=== PATIENT | male | born 1965 | race Caucasian/White ===

== ENCOUNTER 2019-06-28 23:19 | Inpatient (IN) | payer OTHER ==
[2019-06-28 23:56] LABS: ADD MAN DIFF? NO
[2019-06-28 23:59] LABS: BASOPHIL # 0.1 10^3/ul (0.0-0.1); BASOPHILS % 0.5 % (0.0-2.0); EOSINOPHILS # 0.1 10^3/ul (0.0-0.5); EOSINOPHILS % 0.9 % (0.0-7.0); HEMATOCRIT 41.2 % (42.0-52.0); HEMOGLOBIN 12.5 g/dl (14.0-18.0); LYMPHOCYTES # 1.8 10^3/ul (0.8-2.9); LYMPHOCYTES % 14.4 % (15.0-51.0); MEAN CORPUSCULAR HEMOGLOBIN 22.7 pg (29.0-33.0); MEAN CORPUSCULAR HGB CONC 30.3 g/dl (32.0-37.0); MEAN CORPUSCULAR VOLUME 74.8 fl (82.0-101.0); MEAN PLATELET VOLUME 9.4 fl (7.4-10.4); MONOCYTE # 0.9 10^3/ul (0.3-0.9); MONOCYTES % 6.7 % (0.0-11.0); NEUTROPHIL # 9.7 10^3/ul (1.6-7.5); PLATELET COUNT 446 10^3/UL (140-415); RED BLOOD COUNT 5.51 10^6/ul (4.70-6.10); RED CELL DISTRIBUTION WIDTH 17.3 % (11.5-14.5)
[2019-06-28 23:59] LABS: WHITE BLOOD COUNT 12.6 10^3/ul (4.8-10.8)
[2019-06-29 00:08] LABS: HEMOGLOBIN A1C 8.3 % (0-5.9)
[2019-06-29] MEDS: IOHEXOL 100 ML (00:12)
[2019-06-29] MEDS: SOD CHLORIDE 0.9% 100 ML (00:12)
[2019-06-29 00:18] LABS: INR 1.08; PROTIME 14.1 Sec (11.9-14.9); PT RATIO 1.1
[2019-06-29 00:19] LABS: ANION GAP 7 (5-13); BLOOD UREA NITROGEN 13 mg/dl (7-20); CALCIUM 8.7 mg/dl (8.4-10.2); CARBON DIOXIDE 30 mmol/L (21-31); CHLORIDE 101 mmol/L (97-110); CHOL/HDL RATIO 5.4 RATIO; CHOLESTEROL 173 mg/dl (100-200); CREATINE KINASE 286 IU/L (23-200); CREATININE 0.83 mg/dl (0.61-1.24); Estimated GFR > 60 mL/min (>60); GLUCOSE 153 mg/dl (70-220); HDL CHOLESTEROL 32 mg/dl (28-71); LDL CHOLESTEROL,CALCULATED 112 mg/dl; PARTIAL THROMBOPLASTIN TIME 31.9 Sec (23.0-35.0); SODIUM 138 mmol/L (135-144); TRIGLYCERIDES 145 mg/dl (0-149)
[2019-06-29] MEDS: niCARdipine-NS 0.1MG/ML DRIP 200 ML IV ×2 (00:22→02:37)
[2019-06-29 00:30] LABS: CK INDEX 0.9; CK-MB 2.53 ng/ml (0.0-2.4); TROPONIN-I 0.038 ng/ml (0.000-0.120)
[2019-06-29 00:44] LABS: ETHANOL < 10.0 mg/dl (0-0)
[2019-06-29] MEDS: POTASSIUM CHLORIDE 100 ML IVPB ×5 (01:10→14:35)
[2019-06-29] MEDS ORDERED: ONDANSETRON 4 MG INJ IV (02:00)
[2019-06-29] MEDS: DEXTROSE 5%-0.45% NACL 1,000 ML IV ×3 (02:46→16:11)
[2019-06-29] MEDS: niCARdipine 25 MG in SOD CHLORIDE 0.9% 240 ML IV ×3 (02:46→08:31)
[2019-06-29] MEDS: PANTOPRAZOLE 40 MG INJ IV (05:18)
[2019-06-29 06:40] LABS: ADD MAN DIFF? NO
[2019-06-29 06:53] LABS: BASOPHIL # 0.1 10^3/ul (0.0-0.1); BASOPHILS % 0.5 % (0.0-2.0); EOSINOPHILS # 0.2 10^3/ul (0.0-0.5); EOSINOPHILS % 1.3 % (0.0-7.0); HEMATOCRIT 40.5 % (42.0-52.0); HEMOGLOBIN 12.4 g/dl (14.0-18.0); LYMPHOCYTES # 1.9 10^3/ul (0.8-2.9); LYMPHOCYTES % 14.8 % (15.0-51.0); MEAN CORPUSCULAR HEMOGLOBIN 22.7 pg (29.0-33.0); MEAN CORPUSCULAR HGB CONC 30.6 g/dl (32.0-37.0); MEAN PLATELET VOLUME 9.8 fl (7.4-10.4); MONOCYTE # 0.9 10^3/ul (0.3-0.9); MONOCYTES % 6.5 % (0.0-11.0); NEUTROPHIL # 9.9 10^3/ul (1.6-7.5); NEUTROPHILS % 76.4 % (39.0-77.0); PLATELET COUNT 444 10^3/UL (140-415); RED BLOOD COUNT 5.47 10^6/ul (4.70-6.10); RED CELL DISTRIBUTION WIDTH 17.8 % (11.5-14.5)
[2019-06-29 07:27] LABS: ALANINE AMINOTRANSFERASE 37 IU/L (13-69); ALBUMIN 3.7 g/dl (3.3-4.9); ALKALINE PHOSPHATASE 134 IU/L (42-121); ANION GAP 10 (5-13); ASPARTATE AMINO TRANSFERASE 32 IU/L (15-46); BILIRUBIN,INDIRECT 0.6 mg/dl (0-1.1); BILIRUBIN,TOTAL 0.6 mg/dl (0.2-1.3); BLOOD UREA NITROGEN 10 mg/dl (7-20); CALCIUM 8.6 mg/dl (8.4-10.2); CARBON DIOXIDE 27 mmol/L (21-31); CHLORIDE 103 mmol/L (97-110); Estimated GFR > 60 mL/min (>60); GLUCOSE 177 mg/dl (70-220); POTASSIUM 3.1 mmol/L (3.5-5.1); SODIUM 140 mmol/L (135-144); TOTAL PROTEIN 7.8 g/dl (6.1-8.1)
[2019-06-29 09:25] LABS: IRON 26 ug/dl (35-150)
[2019-06-29 09:34] LABS: % IRON SATURATION 9 % SAT (22-52); TOTAL IRON BINDING CAPACITY 287 ug/dl (241-421)
[2019-06-29 10:43] LABS: ADD UMIC YES; UR ASCORBIC ACID NEGATIVE (NEGATIVE); UR BILIRUBIN (Dip) NEGATIVE (NEGATIVE); UR BLOOD (Dip) NEGATIVE (NEGATIVE); UR CLARITY CLEAR (CLEAR); UR COLOR YELLOW (YELLOW); UR GLUCOSE (Dip) NEGATIVE (NEGATIVE); UR KETONES (Dip) NEGATIVE (NEGATIVE); UR LEUKOCYTE ESTERASE (Dip) NEGATIVE Leu/ul (NEGATIVE); UR NITRITE (Dip) NEGATIVE (NEGATIVE); UR RBC 0 /HPF (0-5); UR SPECIFIC GRAVITY (Dip) 1.032 (1.003-1.030); UR TOTAL PROTEIN (Dip) 3+ mg/dl (NEGATIVE); UR UROBILINOGEN (Dip) NEGATIVE (NEGATIVE); UR WBC 1 /HPF (0-5)
[2019-06-29] MEDS: niCARdipine 50 MG in SOD CHLORIDE 0.9% 480 ML IV ×3 (11:13→21:27)
[2019-06-29 11:16] LABS: BARBITURATES Negative (NEGATIVE); BENZODIAZEPINES Negative (NEGATIVE); CANNABINOIDS Negative (NEGATIVE); COCAINE Negative (NEGATIVE); OPIATES Negative (NEGATIVE)
[2019-06-29 11:30] LABS: AMPHETAMINE/METHAMPHETAMINE positive (NEGATIVE)
[2019-06-30] MEDS: niCARdipine 50 MG in SOD CHLORIDE 0.9% 480 ML IV ×6 (01:33→23:06)
[2019-06-30] MEDS: DEXTROSE 5%-0.45% NACL 1,000 ML IV ×2 (04:47→17:08)
[2019-06-30 05:18] LABS: ADD MAN DIFF? NO
[2019-06-30 05:31] LABS: WHITE BLOOD COUNT 11.7 10^3/ul (4.8-10.8)
[2019-06-30 05:31] LABS: BASOPHIL # 0.1 10^3/ul (0.0-0.1); BASOPHILS % 0.5 % (0.0-2.0); EOSINOPHILS # 0.2 10^3/ul (0.0-0.5); EOSINOPHILS % 1.7 % (0.0-7.0); HEMOGLOBIN 11.4 g/dl (14.0-18.0); LYMPHOCYTES # 1.6 10^3/ul (0.8-2.9); LYMPHOCYTES % 13.4 % (15.0-51.0); MEAN CORPUSCULAR HEMOGLOBIN 22.8 pg (29.0-33.0); MEAN CORPUSCULAR HGB CONC 30.8 g/dl (32.0-37.0); MONOCYTES % 8.1 % (0.0-11.0); NEUTROPHIL # 8.8 10^3/ul (1.6-7.5); NEUTROPHILS % 75.9 % (39.0-77.0); PLATELET COUNT 412 10^3/UL (140-415); RED CELL DISTRIBUTION WIDTH 17.6 % (11.5-14.5)
[2019-06-30] MEDS: PANTOPRAZOLE 40 MG INJ IV (05:35)
[2019-06-30 05:59] LABS: ANION GAP 4 (5-13); BLOOD UREA NITROGEN 8 mg/dl (7-20); CARBON DIOXIDE 27 mmol/L (21-31); CHLORIDE 107 mmol/L (97-110); CREATININE 0.61 mg/dl (0.61-1.24); Estimated GFR > 60 mL/min (>60); GLUCOSE 176 mg/dl (70-220); MAGNESIUM 2.1 mg/dl (1.7-2.5); PHOSPHORUS 3.3 mg/dl (2.5-4.9); SODIUM 138 mmol/L (135-144)
[2019-06-30 07:12] LABS: POTASSIUM 3.2 mmol/L (3.5-5.1)
[2019-06-30] MEDS: POTASSIUM CHLORIDE 100 ML IVPB ×2 (09:26→11:06)
[2019-06-30] MEDS: morphine 2 MG INJ IV ×2 (15:52→21:03)
[2019-07-01] MEDS: niCARdipine 50 MG in SOD CHLORIDE 0.9% 480 ML IV ×5 (02:16→19:35)
[2019-07-01] MEDS: morphine 2 MG INJ IV ×2 (03:19→07:49)
[2019-07-01] MEDS: PANTOPRAZOLE 40 MG INJ IV (05:42)
[2019-07-01] MEDS: DEXTROSE 5%-0.45% NACL 1,000 ML IV (05:45)
[2019-07-01 05:49] LABS: ADD MAN DIFF? NO
[2019-07-01 05:55] LABS: BASOPHIL # 0.1 10^3/ul (0.0-0.1); BASOPHILS % 0.5 % (0.0-2.0); EOSINOPHILS # 0.1 10^3/ul (0.0-0.5); EOSINOPHILS % 0.3 % (0.0-7.0); HEMATOCRIT 36.8 % (42.0-52.0); HEMOGLOBIN 11.4 g/dl (14.0-18.0); LYMPHOCYTES # 1.3 10^3/ul (0.8-2.9); LYMPHOCYTES % 8.3 % (15.0-51.0); MEAN CORPUSCULAR VOLUME 74.2 fl (82.0-101.0); MEAN PLATELET VOLUME 10.2 fl (7.4-10.4); MONOCYTE # 1.1 10^3/ul (0.3-0.9); MONOCYTES % 7.5 % (0.0-11.0); NEUTROPHIL # 12.4 10^3/ul (1.6-7.5); NEUTROPHILS % 82.7 % (39.0-77.0); PLATELET COUNT 445 10^3/UL (140-415); RED BLOOD COUNT 4.96 10^6/ul (4.70-6.10); RED CELL DISTRIBUTION WIDTH 18.2 % (11.5-14.5)
[2019-07-01 06:20] LABS: ANION GAP 9 (5-13); BLOOD UREA NITROGEN 11 mg/dl (7-20); CALCIUM 7.9 mg/dl (8.4-10.2); CARBON DIOXIDE 20 mmol/L (21-31); CHLORIDE 108 mmol/L (97-110); Estimated GFR > 60 mL/min (>60); POTASSIUM 3.4 mmol/L (3.5-5.1); SODIUM 137 mmol/L (135-144)
[2019-07-01 06:32] LABS: GLUCOSE 402 mg/dl (70-220)
[2019-07-01] MEDS: METHYLPREDNISOLONE 125 MG INJ IV (06:33)
[2019-07-01 08:24] LABS: ANION GAP 10 (5-13); BLOOD UREA NITROGEN 13 mg/dl (7-20); CALCIUM 8.5 mg/dl (8.4-10.2); CARBON DIOXIDE 20 mmol/L (21-31); CHLORIDE 109 mmol/L (97-110); CREATININE 0.79 mg/dl (0.61-1.24); Estimated GFR > 60 mL/min (>60); GLUCOSE 197 mg/dl (70-220); POTASSIUM 3.6 mmol/L (3.5-5.1); SODIUM 139 mmol/L (135-144)
[2019-07-01 08:28] LABS: Allen Test ACCEPTAB; Arterial Base Excess -7.3 mmol/L (-3.0-3); Arterial Blood Gas Oxygen Sat 82.7 mmHG (95.0-98.0); Arterial COHb 0.4 % (0.0-3.0); Arterial Fraction of Oxyhgb 82.3 % (93.0-99.0); Arterial HCO3 16.8 mmol/L (22.0-26.0); Arterial MetHb 0.1 % (0.0-1.5); MODE MASK - SIMPLE; Site Right Radial
[2019-07-01] MEDS: ALBUTEROL/IPRATROPIUM (NEB) 3 ML AMP HHN ×3 (09:09→20:15)
[2019-07-01] MEDS: FUROSEMIDE 40 MG INJ IV (10:24)
[2019-07-01] MEDS: PIPER-TAZO 3.375 GM IV (PMX) 100 ML IVPB ×3 (10:24→22:20)
[2019-07-01 21:10] LABS: AADO2 Arterial 503.5 mmHg (7.0-24.0); Allen Test ACCEPTAB; Arterial Base Excess -5.8 mmol/L (-3.0-3); Arterial Blood Gas Oxygen Sat 94.4 mmHG (95.0-98.0); Arterial COHb 0.2 % (0.0-3.0); Arterial HCO3 17.8 mmol/L (22.0-26.0); Arterial MetHb 0.2 % (0.0-1.5); Arterial pCO2 29.4 mmhg (35-45); MODE HFNC; Site Right Radial
[2019-07-02] MEDS: niCARdipine 50 MG in SOD CHLORIDE 0.9% 480 ML IV ×6 (01:04→22:01)
[2019-07-02] MEDS: ALBUTEROL/IPRATROPIUM (NEB) 3 ML AMP HHN ×4 (01:23→19:37)
[2019-07-02] MEDS: PANTOPRAZOLE 40 MG INJ IV (05:04)
[2019-07-02] MEDS: PIPER-TAZO 3.375 GM IV (PMX) 100 ML IVPB ×3 (05:04→21:14)
[2019-07-02] MEDS: hydrALAzine 20 MG INJ IV ×4 (05:04→23:08)
[2019-07-02 05:47] LABS: ADD MAN DIFF? NO
[2019-07-02 05:50] LABS: RED BLOOD COUNT 4.66 10^6/ul (4.70-6.10)
[2019-07-02 05:50] LABS: WHITE BLOOD COUNT 14.9 10^3/ul (4.8-10.8)
[2019-07-02 05:51] LABS: BASOPHILS % 0.1 % (0.0-2.0); HEMATOCRIT 34.8 % (42.0-52.0); HEMOGLOBIN 10.7 g/dl (14.0-18.0); LYMPHOCYTES # 0.8 10^3/ul (0.8-2.9); LYMPHOCYTES % 5.2 % (15.0-51.0); MEAN CORPUSCULAR HGB CONC 30.7 g/dl (32.0-37.0); MEAN CORPUSCULAR VOLUME 74.7 fl (82.0-101.0); MEAN PLATELET VOLUME 10.5 fl (7.4-10.4); MONOCYTE # 0.7 10^3/ul (0.3-0.9); MONOCYTES % 4.6 % (0.0-11.0); NEUTROPHIL # 13.4 10^3/ul (1.6-7.5); NEUTROPHILS % 89.4 % (39.0-77.0); PLATELET COUNT 393 10^3/UL (140-415); RED CELL DISTRIBUTION WIDTH 18.2 % (11.5-14.5)
[2019-07-02 06:29] LABS: MAGNESIUM 2.3 mg/dl (1.7-2.5)
[2019-07-02 06:42] LABS: ALANINE AMINOTRANSFERASE 36 IU/L (13-69); ALBUMIN 3.5 g/dl (3.3-4.9); ALBUMIN/GLOBULIN RATIO 0.97; ALKALINE PHOSPHATASE 118 IU/L (42-121); ANION GAP 10 (5-13); ASPARTATE AMINO TRANSFERASE 33 IU/L (15-46); BILIRUBIN,INDIRECT 0.6 mg/dl (0-1.1); BILIRUBIN,TOTAL 0.6 mg/dl (0.2-1.3); BLOOD UREA NITROGEN 28 mg/dl (7-20); CALCIUM 8.7 mg/dl (8.4-10.2); CARBON DIOXIDE 20 mmol/L (21-31); CHLORIDE 112 mmol/L (97-110); CREATININE 0.87 mg/dl (0.61-1.24); Estimated GFR > 60 mL/min (>60); GLUCOSE 226 mg/dl (70-220); POTASSIUM 3.7 mmol/L (3.5-5.1); SODIUM 142 mmol/L (135-144); TOTAL PROTEIN 7.1 g/dl (6.1-8.1)
[2019-07-02] MEDS ORDERED: LABETALOL HCL 20MG INJ (06:56)
[2019-07-02] MEDS: FUROSEMIDE 40 MG INJ IV ×3 (08:48→22:00)
[2019-07-02] MEDS: LABETALOL HCL 20MG INJ IV ×2 (11:47→18:04)
[2019-07-02] MEDS: CLONIDINE 0.3 MG/24 HR PATCH TRANSDERM (13:39)
[2019-07-02] MEDS: LABETALOL 100 MG TAB PO (21:14)
[2019-07-02] MEDS ORDERED: FUROSEMIDE 10 ML (21:52)
[2019-07-02] MEDS ORDERED: LORAZEPAM 2 MG INJ (22:09)
[2019-07-02] MEDS: LORAZEPAM 2 MG INJ IV ×2 (23:07→23:30)
[2019-07-02 23:32] LABS: AADO2 Arterial 607.6 mmHg (7.0-24.0); Allen Test ACCEPTAB; Arterial Base Excess -5.2 mmol/L (-3.0-3); Arterial Blood Gas Oxygen Sat 95.7 mmHG (95.0-98.0); Arterial COHb 0.3 % (0.0-3.0); Arterial Fraction of Oxyhgb 95.2 % (93.0-99.0); Arterial HCO3 17.8 mmol/L (22.0-26.0); Arterial MetHb 0.2 % (0.0-1.5); Arterial pCO2 27.6 mmhg (35-45); Blood Gas IEPAP 15/5; Blood Gas PS 10; MODE MASK - BIPAP; Site Right Radial
[2019-07-03] MEDS: HALOPERIDOL 5 MG INJ IM
[2019-07-03] MEDS: LORAZEPAM 2 MG INJ IV (00:14)
[2019-07-03] MEDS ORDERED: DIAZEPAM 10 MG/2 ML SYG (00:30)
[2019-07-03] MEDS: LABETALOL HCL 20MG INJ IV ×3 (00:38→06:40)
[2019-07-03] MEDS: hydrALAzine 20 MG INJ IV ×4 (01:36→17:29)
[2019-07-03] MEDS: DIAZEPAM 10 MG/2 ML SYG IV (01:37)
[2019-07-03] MEDS: ALBUTEROL/IPRATROPIUM (NEB) 3 ML AMP HHN ×4 (02:11→19:34)
[2019-07-03 02:27] LABS: AADO2 Arterial 602.9 mmHg (7.0-24.0); Allen Test ACCEPTAB; Arterial Base Excess -4.2 mmol/L (-3.0-3); Arterial Blood Gas Oxygen Sat 96.1 mmHG (95.0-98.0); Arterial COHb 0.3 % (0.0-3.0); Arterial Fraction of Oxyhgb 95.5 % (93.0-99.0); Arterial HCO3 18.8 mmol/L (22.0-26.0); Arterial MetHb 0.3 % (0.0-1.5); Arterial pCO2 28.2 mmhg (35-45); Blood Gas IEPAP 15/5; Blood Gas PS 10; MODE MASK - BIPAP; Site Right Radial
[2019-07-03] MEDS: niCARdipine 50 MG in SOD CHLORIDE 0.9% 480 ML IV ×5 (02:30→22:48)
[2019-07-03] MEDS: PIPER-TAZO 3.375 GM IV (PMX) 100 ML IVPB ×3 (05:21→22:16)
[2019-07-03] MEDS: PANTOPRAZOLE 40 MG INJ IV (05:21)
[2019-07-03] MEDS: FUROSEMIDE 40 MG INJ IV ×2 (05:21→17:31)
[2019-07-03 06:10] LABS: ADD MAN DIFF? NO
[2019-07-03 06:12] LABS: WHITE BLOOD COUNT 19.6 10^3/ul (4.8-10.8)
[2019-07-03 06:12] LABS: BASOPHILS % 0.2 % (0.0-2.0); HEMATOCRIT 35.8 % (42.0-52.0); HEMOGLOBIN 10.9 g/dl (14.0-18.0); LYMPHOCYTES % 5.1 % (15.0-51.0); MEAN CORPUSCULAR HEMOGLOBIN 22.6 pg (29.0-33.0); MEAN CORPUSCULAR HGB CONC 30.4 g/dl (32.0-37.0); MEAN CORPUSCULAR VOLUME 74.1 fl (82.0-101.0); MEAN PLATELET VOLUME 10.3 fl (7.4-10.4); MONOCYTE # 1.3 10^3/ul (0.3-0.9); MONOCYTES % 6.5 % (0.0-11.0); NEUTROPHIL # 17.1 10^3/ul (1.6-7.5); NEUTROPHILS % 87.5 % (39.0-77.0); PLATELET COUNT 436 10^3/UL (140-415); RED BLOOD COUNT 4.83 10^6/ul (4.70-6.10); RED CELL DISTRIBUTION WIDTH 19.3 % (11.5-14.5)
[2019-07-03 07:12] LABS: ALANINE AMINOTRANSFERASE 55 IU/L (13-69); ALBUMIN 3.6 g/dl (3.3-4.9); ALBUMIN/GLOBULIN RATIO 0.97; ALKALINE PHOSPHATASE 118 IU/L (42-121); ANION GAP 11 (5-13); ASPARTATE AMINO TRANSFERASE 38 IU/L (15-46); BILIRUBIN,INDIRECT 0.6 mg/dl (0-1.1); BILIRUBIN,TOTAL 0.6 mg/dl (0.2-1.3); BLOOD UREA NITROGEN 34 mg/dl (7-20); CALCIUM 8.3 mg/dl (8.4-10.2); CARBON DIOXIDE 22 mmol/L (21-31); CHLORIDE 113 mmol/L (97-110); CREATININE 1.07 mg/dl (0.61-1.24); Estimated GFR > 60 mL/min (>60); GLUCOSE 206 mg/dl (70-220); POTASSIUM 3.7 mmol/L (3.5-5.1); SODIUM 146 mmol/L (135-144); TOTAL PROTEIN 7.3 g/dl (6.1-8.1)
[2019-07-03] MEDS ORDERED: FLUMAZENIL 0.5 MG INJ (08:23)
[2019-07-03] MEDS: LABETALOL 100 MG TAB PO ×3 (09:00→21:00)
[2019-07-03] MEDS ORDERED: VANCOMYCIN IV PER PHARMACY XX (09:00)
[2019-07-03] MEDS: FLUMAZENIL 0.5 MG INJ IV (09:01)
[2019-07-03] MEDS ORDERED: ROCURONIUM 50 MG INJ (11:00)
[2019-07-03] MEDS ORDERED: ETOMIDATE 20 MG INJ (11:00)
[2019-07-03] MEDS ORDERED: PROPOFOL 100 ML (11:03)
[2019-07-03] MEDS: VANCOMYCIN HCL 2 GM in SOD CHLORIDE 0.9% 500 ML IVPB (11:53)
[2019-07-03] MEDS: PROPOFOL 100 ML IV ×4 (12:01→23:01)
[2019-07-03 12:22] LABS: Allen Test ACCEPTAB; Arterial Base Excess -4.9 mmol/L (-3.0-3); Arterial Blood Gas Oxygen Sat 85.2 mmHG (95.0-98.0); Arterial COHb 0.3 % (0.0-3.0); Arterial Fraction of Oxyhgb 84.7 % (93.0-99.0); Arterial HCO3 21.9 mmol/L (22.0-26.0); Arterial MetHb 0.3 % (0.0-1.5); Arterial pCO2 47.6 mmhg (35-45); MODE VENT - AC; Site Right Radial
[2019-07-03 21:15] LABS: AADO2 Arterial 599.3 mmHg (7.0-24.0); Allen Test ACCEPTAB; Arterial Blood Gas Oxygen Sat 96.1 mmHG (95.0-98.0); Arterial COHb 0.3 % (0.0-3.0); Arterial Fraction of Oxyhgb 95.6 % (93.0-99.0); Arterial HCO3 21.5 mmol/L (22.0-26.0); Arterial MetHb 0.2 % (0.0-1.5); Arterial pCO2 32.6 mmhg (35-45); MODE VENT - AC; Site Left Radial
[2019-07-03] MEDS: VANCOMYCIN 1.5 GM/NS 250 ML 250 ML IVPB (22:48)
[2019-07-04] MEDS: hydrALAzine 20 MG INJ IV ×4 (00:53→17:37)
[2019-07-04] MEDS: ALBUTEROL/IPRATROPIUM (NEB) 3 ML AMP HHN ×4 (01:44→19:18)
[2019-07-04] MEDS: PROPOFOL 100 ML IV ×6 (01:58→22:57)
[2019-07-04] MEDS: FUROSEMIDE 40 MG INJ IV ×2 (05:30→17:37)
[2019-07-04] MEDS: PIPER-TAZO 3.375 GM IV (PMX) 100 ML IVPB ×3 (05:30→22:01)
[2019-07-04 06:57] LABS: PHOSPHORUS 3.7 mg/dl (2.5-4.9)
[2019-07-04 06:57] LABS: MAGNESIUM 2.4 mg/dl (1.7-2.5)
[2019-07-04 07:20] LABS: BLOOD UREA NITROGEN 28 mg/dl (7-20)
[2019-07-04 07:20] LABS: CREATININE 0.92 mg/dl (0.61-1.24)
[2019-07-04 07:24] LABS: ANION GAP 7 (5-13); BLOOD UREA NITROGEN 28 mg/dl (7-20); CALCIUM 8.1 mg/dl (8.4-10.2); CARBON DIOXIDE 25 mmol/L (21-31); CHLORIDE 116 mmol/L (97-110); CREATININE 0.85 mg/dl (0.61-1.24); Estimated GFR > 60 mL/min (>60); GLUCOSE 139 mg/dl (70-220); POTASSIUM 3.2 mmol/L (3.5-5.1); SODIUM 148 mmol/L (135-144)
[2019-07-04 07:56] LABS: AADO2 Arterial 559.8 mmHg (7.0-24.0); Allen Test ACCEPTAB; Arterial Base Excess -1.2 mmol/L (-3.0-3); Arterial Blood Gas Oxygen Sat 98.2 mmHG (95.0-98.0); Arterial COHb 0.3 % (0.0-3.0); Arterial Fraction of Oxyhgb 97.6 % (93.0-99.0); Arterial HCO3 21.6 mmol/L (22.0-26.0); Arterial MetHb 0.3 % (0.0-1.5); Arterial pCO2 30.2 mmhg (35-45); MODE VENT - AC; Site Right Radial
[2019-07-04] MEDS: LABETALOL 100 MG TAB PO ×3 (09:12→20:29)
[2019-07-04] MEDS: FAMOTIDINE 20 MG INJ IV ×2 (09:12→20:28)
[2019-07-04] MEDS: VANCOMYCIN 1.5 GM/NS 250 ML 250 ML IVPB ×2 (10:52→22:56)
[2019-07-04] MEDS ORDERED: GLUCOSE GEL 15 GRAM TUBE PO ×2 (13:00)
[2019-07-04] MEDS ORDERED: GLUCOSE GEL 15 GRAM TUBE BUCCAL (13:00)
[2019-07-04] MEDS ORDERED: GLUCAGON 1 MG INJ IM (13:00)
[2019-07-04] MEDS ORDERED: DEXTROSE 50% 50 ML SYRINGE IV ×2 (13:00)
[2019-07-04] MEDS: INSULIN GLARGINE [LANTus] (100 UNITS/ML) SYG SC (20:28)
[2019-07-04] MEDS: morphine 2 MG INJ IV (20:58)
[2019-07-04 22:37] LABS: VANCOMYCIN,TROUGH 13.9 ug/ml (10.0-20.0)
[2019-07-05] MEDS: ALBUTEROL/IPRATROPIUM (NEB) 3 ML AMP HHN (01:42)
[2019-07-05] MEDS: PROPOFOL 100 ML IV ×5 (03:01→22:48)
[2019-07-05 05:43] LABS: ADD MAN DIFF? NO
[2019-07-05 05:58] LABS: WHITE BLOOD COUNT 11.2 10^3/ul (4.8-10.8)
[2019-07-05 05:58] LABS: BASOPHIL # 0.1 10^3/ul (0.0-0.1); BASOPHILS % 0.5 % (0.0-2.0); EOSINOPHILS # 0.1 10^3/ul (0.0-0.5); EOSINOPHILS % 1.2 % (0.0-7.0); HEMATOCRIT 33.1 % (42.0-52.0); HEMOGLOBIN 10.2 g/dl (14.0-18.0); LYMPHOCYTES # 1.5 10^3/ul (0.8-2.9); LYMPHOCYTES % 13.4 % (15.0-51.0); MEAN CORPUSCULAR HEMOGLOBIN 23.3 pg (29.0-33.0); MEAN CORPUSCULAR HGB CONC 30.8 g/dl (32.0-37.0); MEAN CORPUSCULAR VOLUME 75.6 fl (82.0-101.0); MEAN PLATELET VOLUME 10.6 fl (7.4-10.4); NEUTROPHIL # 8.4 10^3/ul (1.6-7.5); NEUTROPHILS % 75.2 % (39.0-77.0); PLATELET COUNT 338 10^3/UL (140-415); RED BLOOD COUNT 4.38 10^6/ul (4.70-6.10); RED CELL DISTRIBUTION WIDTH 18.9 % (11.5-14.5)
[2019-07-05] MEDS: FUROSEMIDE 40 MG INJ IV ×2 (06:07→17:57)
[2019-07-05] MEDS: PIPER-TAZO 3.375 GM IV (PMX) 100 ML IVPB ×3 (06:07→21:54)
[2019-07-05 06:26] LABS: MAGNESIUM 2.4 mg/dl (1.7-2.5)
[2019-07-05 06:26] LABS: PHOSPHORUS 4.4 mg/dl (2.5-4.9)
[2019-07-05 07:14] LABS: ANION GAP 6 (5-13); BLOOD UREA NITROGEN 27 mg/dl (7-20); CALCIUM 8.1 mg/dl (8.4-10.2); CARBON DIOXIDE 26 mmol/L (21-31); CHLORIDE 116 mmol/L (97-110); CREATININE 0.92 mg/dl (0.61-1.24); Estimated GFR > 60 mL/min (>60); GLUCOSE 149 mg/dl (70-220); POTASSIUM 3.1 mmol/L (3.5-5.1); SODIUM 148 mmol/L (135-144)
[2019-07-05] MEDS: IPRATROPIUM (HFA) 12.9 GM INHALER INH ×3 (07:21→19:34)
[2019-07-05] MEDS: ALBUTEROL HFA 8 GM INHALER INH ×3 (07:21→19:34)
[2019-07-05] MEDS: LABETALOL 100 MG TAB PO ×2 (08:25→13:51)
[2019-07-05] MEDS: FAMOTIDINE 20 MG INJ IV ×2 (08:25→20:19)
[2019-07-05] MEDS: VANCOMYCIN 1.5 GM/NS 250 ML 250 ML IVPB ×2 (10:52→22:51)
[2019-07-05 13:05] LABS: PROCALCITONIN 0.27 ng/mL (0.00-0.10)
[2019-07-05] MEDS: INSULIN ASPART [NOVOLOG] 3 ML PEN SC (18:00)
[2019-07-05 19:49] LABS: MAGNESIUM 2.3 mg/dl (1.7-2.5)
[2019-07-05] MEDS: POTASSIUM CHLORIDE 20 MEQ POWDER FOR ORAL SOLN NGT (20:19)
[2019-07-05] MEDS: LABETALOL 100 MG TAB GTB (20:19)
[2019-07-05] MEDS: POTASSIUM CHLORIDE 20 MEQ POWDER FOR ORAL SOLN GTB (20:20)
[2019-07-05] MEDS: INSULIN GLARGINE [LANTus] (100 UNITS/ML) SYG SC (20:21)
[2019-07-05] MEDS: POLYETHYLENE GLYCOL 17 GM PACKET GTB (22:30)
[2019-07-06] MEDS: INSULIN ASPART [NOVOLOG] 3 ML PEN SC ×5 (00:14→23:27)
[2019-07-06] MEDS: BISACODYL 10 MG SUPP PR (00:17)
[2019-07-06] MEDS: ALBUTEROL HFA 8 GM INHALER INH ×4 (01:06→19:09)
[2019-07-06] MEDS: IPRATROPIUM (HFA) 12.9 GM INHALER INH ×4 (01:06→19:09)
[2019-07-06] MEDS: LABETALOL HCL 20MG INJ IV ×2 (01:11→09:38)
[2019-07-06] MEDS: PROPOFOL 100 ML IV ×4 (02:31→22:10)
[2019-07-06 04:59] LABS: ADD MAN DIFF? NO
[2019-07-06 05:11] LABS: WHITE BLOOD COUNT 10.9 10^3/ul (4.8-10.8)
[2019-07-06 05:11] LABS: BASOPHIL # 0.1 10^3/ul (0.0-0.1); BASOPHILS % 0.5 % (0.0-2.0); EOSINOPHILS # 0.3 10^3/ul (0.0-0.5); EOSINOPHILS % 2.6 % (0.0-7.0); HEMOGLOBIN 10.1 g/dl (14.0-18.0); LYMPHOCYTES # 1.3 10^3/ul (0.8-2.9); LYMPHOCYTES % 12.2 % (15.0-51.0); MEAN CORPUSCULAR HEMOGLOBIN 23.1 pg (29.0-33.0); MEAN CORPUSCULAR HGB CONC 30.6 g/dl (32.0-37.0); MEAN CORPUSCULAR VOLUME 75.3 fl (82.0-101.0); MEAN PLATELET VOLUME 10.4 fl (7.4-10.4); MONOCYTE # 0.9 10^3/ul (0.3-0.9); MONOCYTES % 7.9 % (0.0-11.0); NEUTROPHIL # 8.4 10^3/ul (1.6-7.5); NEUTROPHILS % 76.3 % (39.0-77.0); PLATELET COUNT 356 10^3/UL (140-415); RED BLOOD COUNT 4.38 10^6/ul (4.70-6.10); RED CELL DISTRIBUTION WIDTH 18.6 % (11.5-14.5)
[2019-07-06 05:41] LABS: MAGNESIUM 2.4 mg/dl (1.7-2.5)
[2019-07-06 05:41] LABS: PHOSPHORUS 4.1 mg/dl (2.5-4.9)
[2019-07-06 05:45] LABS: ANION GAP 6 (5-13); BLOOD UREA NITROGEN 25 mg/dl (7-20); CALCIUM 8.3 mg/dl (8.4-10.2); CARBON DIOXIDE 28 mmol/L (21-31); CHLORIDE 115 mmol/L (97-110); CREATININE 0.93 mg/dl (0.61-1.24); Estimated GFR > 60 mL/min (>60); GLUCOSE 168 mg/dl (70-220); POTASSIUM 3.6 mmol/L (3.5-5.1); SODIUM 149 mmol/L (135-144)
[2019-07-06] MEDS: PIPER-TAZO 3.375 GM IV (PMX) 100 ML IVPB ×3 (06:03→22:10)
[2019-07-06] MEDS: FUROSEMIDE 40 MG INJ IV (06:03)
[2019-07-06] MEDS ORDERED: DOCUSATE SODIUM 10 MG/ML (10ML CUP) GTB (09:00)
[2019-07-06] MEDS: FAMOTIDINE 20 MG INJ IV ×2 (09:40→20:12)
[2019-07-06] MEDS: POTASSIUM CHLORIDE 20 MEQ POWDER FOR ORAL SOLN NGT ×2 (09:45→20:12)
[2019-07-06] MEDS: DOCUSATE SODIUM 10 MG/ML (10ML CUP) GTB ×2 (09:45→20:11)
[2019-07-06] MEDS: LABETALOL 100 MG TAB GTB ×3 (09:48→20:12)
[2019-07-06] MEDS: niCARdipine 50 MG in SOD CHLORIDE 0.9% 480 ML IV (10:48)
[2019-07-06] MEDS: VANCOMYCIN 1.5 GM/NS 250 ML 250 ML IVPB ×2 (11:22→23:24)
[2019-07-06 11:42] LABS: AADO2 Arterial 123.6 mmHg (7.0-24.0); Allen Test ACCEPTAB; Arterial Base Excess 0.2 mmol/L (-3.0-3); Arterial Blood Gas Oxygen Sat 89.6 mmHG (95.0-98.0); Arterial COHb 0.3 % (0.0-3.0); Arterial Fraction of Oxyhgb 89.1 % (93.0-99.0); Arterial HCO3 22.8 mmol/L (22.0-26.0); Arterial MetHb 0.3 % (0.0-1.5); Arterial pCO2 30.5 mmhg (35-45); Blood Gas PS 10; MODE VENT - CPAP; Site Right Radial
[2019-07-06] MEDS: FLUCONAZOLE 200 MG TAB NGT (17:05)
[2019-07-06] MEDS: LACTULOSE 30ML CUP GTB (18:07)
[2019-07-06] MEDS: INSULIN GLARGINE [LANTus] (100 UNITS/ML) SYG SC (20:23)
[2019-07-07] MEDS: IPRATROPIUM (HFA) 12.9 GM INHALER INH ×4 (01:08→19:21)
[2019-07-07] MEDS: ALBUTEROL HFA 8 GM INHALER INH ×4 (01:08→19:21)
[2019-07-07] MEDS: PROPOFOL 100 ML IV ×4 (05:44→20:54)
[2019-07-07] MEDS: PIPER-TAZO 3.375 GM IV (PMX) 100 ML IVPB ×3 (05:45→22:02)
[2019-07-07] MEDS: INSULIN ASPART [NOVOLOG] 3 ML PEN SC ×4 (05:49→23:29)
[2019-07-07 06:05] LABS: MAGNESIUM 2.6 mg/dl (1.7-2.5)
[2019-07-07 06:11] LABS: ANION GAP 7 (5-13); BLOOD UREA NITROGEN 26 mg/dl (7-20); CALCIUM 8.6 mg/dl (8.4-10.2); CARBON DIOXIDE 28 mmol/L (21-31); CHLORIDE 115 mmol/L (97-110); CREATININE 1.03 mg/dl (0.61-1.24); Estimated GFR > 60 mL/min (>60); GLUCOSE 133 mg/dl (70-220); POTASSIUM 4.1 mmol/L (3.5-5.1); SODIUM 150 mmol/L (135-144)
[2019-07-07] MEDS: FAMOTIDINE 20 MG INJ IV ×2 (07:49→20:54)
[2019-07-07] MEDS: POTASSIUM CHLORIDE 20 MEQ POWDER FOR ORAL SOLN NGT ×2 (07:49→20:27)
[2019-07-07] MEDS: LABETALOL 100 MG TAB GTB ×3 (07:50→20:28)
[2019-07-07] MEDS: FLUCONAZOLE 200 MG TAB NGT (07:50)
[2019-07-07] MEDS: DOCUSATE SODIUM 10 MG/ML (10ML CUP) GTB ×2 (07:50→20:27)
[2019-07-07 09:20] LABS: AADO2 Arterial 251.6 mmHg (7.0-24.0); Allen Test ACCEPTAB; Arterial Base Excess -0.9 mmol/L (-3.0-3); Arterial Blood Gas Oxygen Sat 94.6 mmHG (95.0-98.0); Arterial COHb 0.3 % (0.0-3.0); Arterial Fraction of Oxyhgb 94.1 % (93.0-99.0); Arterial HCO3 21.6 mmol/L (22.0-26.0); Arterial MetHb 0.2 % (0.0-1.5); Arterial pCO2 28.9 mmhg (35-45); MODE VENT - AC; Site Right Radial
[2019-07-07] MEDS: VANCOMYCIN 1.5 GM/NS 250 ML 250 ML IVPB ×2 (12:28→23:30)
[2019-07-07] MEDS: INSULIN GLARGINE [LANTus] (100 UNITS/ML) SYG SC (20:29)
[2019-07-07] MEDS: LABETALOL HCL 20MG INJ IV (20:54)
[2019-07-07] MEDS: ACETAMINOPHEN 650MG/20.3ML CUP GTB (20:54)
[2019-07-08] MEDS: IPRATROPIUM (HFA) 12.9 GM INHALER INH ×4 (01:25→19:46)
[2019-07-08] MEDS: ALBUTEROL HFA 8 GM INHALER INH ×4 (01:25→19:47)
[2019-07-08] MEDS: LABETALOL HCL 20MG INJ IV (03:09)
[2019-07-08] MEDS: PROPOFOL 100 ML IV ×4 (03:38→20:44)
[2019-07-08 05:34] LABS: ADD MAN DIFF? NO
[2019-07-08] MEDS: PIPER-TAZO 3.375 GM IV (PMX) 100 ML IVPB ×3 (05:51→21:32)
[2019-07-08] MEDS: INSULIN ASPART [NOVOLOG] 3 ML PEN SC ×4 (05:55→23:35)
[2019-07-08 06:00] LABS: WHITE BLOOD COUNT 10.1 10^3/ul (4.8-10.8)
[2019-07-08 06:00] LABS: BASOPHIL # 0.1 10^3/ul (0.0-0.1); BASOPHILS % 0.6 % (0.0-2.0); EOSINOPHILS # 0.4 10^3/ul (0.0-0.5); EOSINOPHILS % 3.6 % (0.0-7.0); HEMATOCRIT 34.8 % (42.0-52.0); HEMOGLOBIN 10.3 g/dl (14.0-18.0); LYMPHOCYTES # 1.7 10^3/ul (0.8-2.9); LYMPHOCYTES % 16.7 % (15.0-51.0); MEAN CORPUSCULAR HEMOGLOBIN 22.9 pg (29.0-33.0); MEAN CORPUSCULAR HGB CONC 29.6 g/dl (32.0-37.0); MEAN CORPUSCULAR VOLUME 77.5 fl (82.0-101.0); MEAN PLATELET VOLUME 10.9 fl (7.4-10.4); MONOCYTES % 9.5 % (0.0-11.0); NEUTROPHILS % 68.9 % (39.0-77.0); PLATELET COUNT 352 10^3/UL (140-415); RED BLOOD COUNT 4.49 10^6/ul (4.70-6.10)
[2019-07-08 06:06] LABS: MAGNESIUM 2.9 mg/dl (1.7-2.5)
[2019-07-08 06:06] LABS: PHOSPHORUS 4.5 mg/dl (2.5-4.9)
[2019-07-08 06:23] LABS: ANION GAP 6 (5-13); BLOOD UREA NITROGEN 24 mg/dl (7-20); CALCIUM 8.5 mg/dl (8.4-10.2); CARBON DIOXIDE 27 mmol/L (21-31); CHLORIDE 116 mmol/L (97-110); CREATININE 0.96 mg/dl (0.61-1.24); Estimated GFR > 60 mL/min (>60); GLUCOSE 141 mg/dl (70-220); POTASSIUM 4.4 mmol/L (3.5-5.1); SODIUM 149 mmol/L (135-144)
[2019-07-08] MEDS: POTASSIUM CHLORIDE 20 MEQ POWDER FOR ORAL SOLN NGT ×2 (09:15→20:43)
[2019-07-08] MEDS: LABETALOL 100 MG TAB GTB ×3 (09:15→20:43)
[2019-07-08] MEDS: FLUCONAZOLE 200 MG TAB NGT (09:15)
[2019-07-08] MEDS: FUROSEMIDE 40 MG INJ IV (09:15)
[2019-07-08] MEDS: DOCUSATE SODIUM 10 MG/ML (10ML CUP) GTB ×2 (09:15→20:42)
[2019-07-08] MEDS: FAMOTIDINE 20 MG INJ IV ×2 (09:27→21:32)
[2019-07-08 11:07] LABS: VANCOMYCIN,TROUGH 15.4 ug/ml (10.0-20.0)
[2019-07-08] MEDS: FENTAnyl (DRIP) 1000 mcg/100mL 100 ML IV (11:36)
[2019-07-08] MEDS: VANCOMYCIN 1.5 GM/NS 250 ML 250 ML IVPB ×2 (13:28→23:29)
[2019-07-08] MEDS: INSULIN GLARGINE [LANTus] (100 UNITS/ML) SYG SC (20:45)
[2019-07-09] MEDS: ALBUTEROL HFA 8 GM INHALER INH ×2 (02:22→07:32)
[2019-07-09] MEDS: IPRATROPIUM (HFA) 12.9 GM INHALER INH ×2 (02:22→07:32)
[2019-07-09] MEDS: PIPER-TAZO 3.375 GM IV (PMX) 100 ML IVPB ×3 (05:06→21:29)
[2019-07-09] MEDS: INSULIN ASPART [NOVOLOG] 3 ML PEN SC ×3 (05:20→17:38)
[2019-07-09 05:49] LABS: ADD MAN DIFF? NO
[2019-07-09 05:58] LABS: ABNORMAL IP MESSAGE 1; BASOPHIL # 0.1 10^3/ul (0.0-0.1); BASOPHILS % 0.8 % (0.0-2.0); EOSINOPHILS # 0.4 10^3/ul (0.0-0.5); HEMOGLOBIN 10.1 g/dl (14.0-18.0); LYMPHOCYTES # 1.4 10^3/ul (0.8-2.9); LYMPHOCYTES % 14.3 % (15.0-51.0); MEAN CORPUSCULAR HEMOGLOBIN 22.6 pg (29.0-33.0); MEAN CORPUSCULAR HGB CONC 28.9 g/dl (32.0-37.0); MEAN CORPUSCULAR VOLUME 78.3 fl (82.0-101.0); MONOCYTE # 0.8 10^3/ul (0.3-0.9); MONOCYTES % 8.3 % (0.0-11.0); PLATELET COUNT 334 10^3/UL (140-415); POSITIVE DIFF @See below; RED BLOOD COUNT 4.47 10^6/ul (4.70-6.10); RED CELL DISTRIBUTION WIDTH 19.4 % (11.5-14.5)
[2019-07-09 05:58] LABS: WHITE BLOOD COUNT 9.7 10^3/ul (4.8-10.8)
[2019-07-09 06:24] LABS: ANION GAP 5 (5-13); BLOOD UREA NITROGEN 30 mg/dl (7-20); CALCIUM 8.5 mg/dl (8.4-10.2); CARBON DIOXIDE 29 mmol/L (21-31); CHLORIDE 113 mmol/L (97-110); CREATININE 0.89 mg/dl (0.61-1.24); Estimated GFR > 60 mL/min (>60); GLUCOSE 167 mg/dl (70-220); PHOSPHORUS 4.9 mg/dl (2.5-4.9); POTASSIUM 4.5 mmol/L (3.5-5.1); SODIUM 147 mmol/L (135-144)
[2019-07-09] MEDS: FUROSEMIDE 40 MG INJ IV ×2 (08:22→12:38)
[2019-07-09] MEDS: DOCUSATE SODIUM 10 MG/ML (10ML CUP) GTB ×2 (08:22→20:39)
[2019-07-09] MEDS: FLUCONAZOLE 200 MG TAB NGT (08:22)
[2019-07-09] MEDS: FAMOTIDINE 20 MG INJ IV ×2 (08:22→20:38)
[2019-07-09] MEDS: LABETALOL 100 MG TAB GTB ×3 (08:23→21:12)
[2019-07-09] MEDS: POTASSIUM CHLORIDE 20 MEQ POWDER FOR ORAL SOLN NGT ×2 (08:23→20:39)
[2019-07-09] MEDS: PROPOFOL 100 ML IV (08:58)
[2019-07-09] MEDS: VANCOMYCIN 1.5 GM/NS 250 ML 250 ML IVPB (10:39)
[2019-07-09 12:06] LABS: AADO2 Arterial 158.3 mmHg (7.0-24.0); Allen Test ACCEPTAB; Arterial Base Excess 1.4 mmol/L (-3.0-3); Arterial Blood Gas Oxygen Sat 95.5 mmHG (95.0-98.0); Arterial COHb 0.3 % (0.0-3.0); Arterial Fraction of Oxyhgb 95.1 % (93.0-99.0); Arterial HCO3 25.8 mmol/L (22.0-26.0); Arterial MetHb 0.1 % (0.0-1.5); Arterial pCO2 40.1 mmhg (35-45); Blood Gas PS 10; MODE VENT - CPAP; Site Right Radial
[2019-07-09] MEDS: CLONIDINE 0.3 MG/24 HR PATCH TRANSDERM (12:31)
[2019-07-09] MEDS: INSULIN GLARGINE [LANTus] (100 UNITS/ML) SYG SC (20:51)
[2019-07-10] MEDS: PROPOFOL 100 ML IV ×2 (04:56→17:30)
[2019-07-10] MEDS: INSULIN ASPART [NOVOLOG] 3 ML PEN SC ×4 (05:06→17:24)
[2019-07-10] MEDS: PIPER-TAZO 3.375 GM IV (PMX) 100 ML IVPB (05:06)
[2019-07-10 05:28] LABS: ADD MAN DIFF? NO
[2019-07-10 05:31] LABS: BASOPHIL # 0.1 10^3/ul (0.0-0.1); BASOPHILS % 0.6 % (0.0-2.0); EOSINOPHILS # 0.3 10^3/ul (0.0-0.5); EOSINOPHILS % 3.2 % (0.0-7.0); HEMATOCRIT 38.8 % (42.0-52.0); HEMOGLOBIN 11.6 g/dl (14.0-18.0); LYMPHOCYTES # 1.5 10^3/ul (0.8-2.9); LYMPHOCYTES % 15.5 % (15.0-51.0); MEAN CORPUSCULAR HEMOGLOBIN 22.9 pg (29.0-33.0); MEAN CORPUSCULAR HGB CONC 29.9 g/dl (32.0-37.0); MEAN CORPUSCULAR VOLUME 76.5 fl (82.0-101.0); MEAN PLATELET VOLUME 10.6 fl (7.4-10.4); MONOCYTE # 0.9 10^3/ul (0.3-0.9); MONOCYTES % 8.9 % (0.0-11.0); NEUTROPHIL # 6.9 10^3/ul (1.6-7.5); NEUTROPHILS % 71.4 % (39.0-77.0); PLATELET COUNT 360 10^3/UL (140-415); RED BLOOD COUNT 5.07 10^6/ul (4.70-6.10); RED CELL DISTRIBUTION WIDTH 19.1 % (11.5-14.5)
[2019-07-10 05:31] LABS: WHITE BLOOD COUNT 9.7 10^3/ul (4.8-10.8)
[2019-07-10 06:01] LABS: ANION GAP 5 (5-13); BLOOD UREA NITROGEN 27 mg/dl (7-20); CALCIUM 8.8 mg/dl (8.4-10.2); CARBON DIOXIDE 28 mmol/L (21-31); CHLORIDE 113 mmol/L (97-110); CREATININE 0.87 mg/dl (0.61-1.24); Estimated GFR > 60 mL/min (>60); GLUCOSE 130 mg/dl (70-220); MAGNESIUM 2.8 mg/dl (1.7-2.5); PHOSPHORUS 4.5 mg/dl (2.5-4.9); POTASSIUM 4.2 mmol/L (3.5-5.1); SODIUM 146 mmol/L (135-144)
[2019-07-10 07:17] LABS: AADO2 Arterial 110.8 mmHg (7.0-24.0); Allen Test ACCEPTAB; Arterial Base Excess 0.6 mmol/L (-3.0-3); Arterial Blood Gas Oxygen Sat 94.7 mmHG (95.0-98.0); Arterial COHb 0.4 % (0.0-3.0); Arterial Fraction of Oxyhgb 94.1 % (93.0-99.0); Arterial HCO3 24.9 mmol/L (22.0-26.0); Arterial MetHb 0.2 % (0.0-1.5); Arterial pCO2 39.1 mmhg (35-45); MODE NASAL CANNULA; Site Right Radial
[2019-07-10] MEDS: DOCUSATE SODIUM 10 MG/ML (10ML CUP) GTB ×2 (08:41→19:43)
[2019-07-10] MEDS: FAMOTIDINE 20 MG INJ IV (08:41)
[2019-07-10] MEDS: FUROSEMIDE 40 MG INJ IV (08:42)
[2019-07-10] MEDS: LABETALOL 100 MG TAB GTB ×3 (09:00→19:44)
[2019-07-10] MEDS: POTASSIUM CHLORIDE 20 MEQ POWDER FOR ORAL SOLN NGT ×2 (12:00→19:44)
[2019-07-10] MEDS: FLUCONAZOLE 200 MG TAB NGT (12:01)
[2019-07-10] MEDS ORDERED: FAMOTIDINE 20 MG TAB (19:40)
[2019-07-10] MEDS: FAMOTIDINE 20 MG TAB GTB (19:43)
[2019-07-10] MEDS: INSULIN GLARGINE [LANTus] (100 UNITS/ML) SYG SC (19:55)
[2019-07-11] MEDS: INSULIN ASPART [NOVOLOG] 3 ML PEN SC ×5 (02:00→20:29)
[2019-07-11] MEDS: FLUCONAZOLE 200 MG TAB NGT (09:58)
[2019-07-11] MEDS: DOCUSATE SODIUM 10 MG/ML (10ML CUP) GTB ×2 (09:58→20:25)
[2019-07-11] MEDS: POTASSIUM CHLORIDE 20 MEQ POWDER FOR ORAL SOLN NGT ×2 (09:58→21:17)
[2019-07-11] MEDS: FAMOTIDINE 20 MG TAB GTB ×2 (09:58→20:25)
[2019-07-11] MEDS: LABETALOL 100 MG TAB GTB ×3 (09:58→20:26)
[2019-07-11] MEDS: FUROSEMIDE 40 MG INJ IV (09:59)
[2019-07-11] MEDS: AMLODIPINE 5 MG TAB GTB (16:32)
[2019-07-11] MEDS: INSULIN GLARGINE [LANTus] (100 UNITS/ML) SYG SC (20:29)
[2019-07-12] MEDS: INSULIN ASPART [NOVOLOG] 3 ML PEN SC ×4 (07:32→21:00)
[2019-07-12] MEDS: AMLODIPINE 5 MG TAB GTB (09:39)
[2019-07-12] MEDS: POTASSIUM CHLORIDE 20 MEQ POWDER FOR ORAL SOLN NGT ×2 (09:39→21:26)
[2019-07-12] MEDS: FUROSEMIDE 40 MG INJ IV (09:39)
[2019-07-12] MEDS: DOCUSATE SODIUM 10 MG/ML (10ML CUP) GTB ×2 (09:39→21:26)
[2019-07-12] MEDS: FAMOTIDINE 20 MG TAB GTB ×2 (09:40→21:26)
[2019-07-12] MEDS: LABETALOL 100 MG TAB GTB ×2 (09:40→12:54)
[2019-07-12] MEDS: FLUCONAZOLE 200 MG TAB NGT (09:40)
[2019-07-12] MEDS: INSULIN GLARGINE [LANTus] (100 UNITS/ML) SYG SC (21:41)
[2019-07-13] MEDS: INSULIN ASPART [NOVOLOG] 3 ML PEN SC ×4 (07:47→20:44)
[2019-07-13] MEDS: FAMOTIDINE 20 MG TAB GTB ×2 (09:04→20:43)
[2019-07-13] MEDS: FLUCONAZOLE 200 MG TAB NGT (09:04)
[2019-07-13] MEDS: DOCUSATE SODIUM 10 MG/ML (10ML CUP) GTB ×2 (09:04→20:43)
[2019-07-13] MEDS: POTASSIUM CHLORIDE 20 MEQ POWDER FOR ORAL SOLN NGT ×2 (09:05→20:44)
[2019-07-13] MEDS: AMLODIPINE 5 MG TAB GTB (09:05)
[2019-07-13] MEDS: FUROSEMIDE 40 MG INJ IV (09:05)
[2019-07-13] MEDS: INSULIN GLARGINE [LANTus] (100 UNITS/ML) SYG SC (20:53)
[2019-07-14] MEDS: INSULIN ASPART [NOVOLOG] 3 ML PEN SC ×4 (07:51→20:37)
[2019-07-14] MEDS: DOCUSATE SODIUM 10 MG/ML (10ML CUP) GTB ×2 (08:43→20:37)
[2019-07-14] MEDS: FAMOTIDINE 20 MG TAB GTB ×2 (08:43→20:37)
[2019-07-14] MEDS: POTASSIUM CHLORIDE 20 MEQ POWDER FOR ORAL SOLN NGT ×2 (08:43→20:37)
[2019-07-14] MEDS: FLUCONAZOLE 200 MG TAB NGT (08:43)
[2019-07-14] MEDS: FUROSEMIDE 40 MG INJ IV (08:44)
[2019-07-14] MEDS: AMLODIPINE 5 MG TAB GTB (08:44)
[2019-07-14] MEDS: morphine 2 MG INJ IV (13:17)
[2019-07-14] MEDS: INSULIN GLARGINE [LANTus] (100 UNITS/ML) SYG SC (20:46)
[2019-07-15] MEDS: INSULIN ASPART [NOVOLOG] 3 ML PEN SC ×5 (08:11→21:14)
[2019-07-15] MEDS: DOCUSATE SODIUM 10 MG/ML (10ML CUP) GTB (10:24)
[2019-07-15] MEDS: FUROSEMIDE 40 MG INJ IV (10:24)
[2019-07-15] MEDS: FLUCONAZOLE 200 MG TAB NGT (10:24)
[2019-07-15] MEDS: FAMOTIDINE 20 MG TAB GTB (10:24)
[2019-07-15] MEDS: AMLODIPINE 5 MG TAB GTB (10:24)
[2019-07-15] MEDS: POTASSIUM CHLORIDE 20 MEQ POWDER FOR ORAL SOLN NGT (10:25)
[2019-07-15] MEDS ORDERED: ACETAMINOPHEN 650MG/20.3ML CUP PO (17:40)
[2019-07-15] MEDS: POTASSIUM CHLORIDE 20 MEQ POWDER FOR ORAL SOLN PO (20:46)
[2019-07-15] MEDS: METOPROLOL 50 MG TAB PO (20:49)
[2019-07-15] MEDS: INSULIN GLARGINE [LANTus] (100 UNITS/ML) SYG SC (21:13)
[2019-07-16] MEDS ORDERED: hydrALAzine 20 MG INJ IV (07:00)
[2019-07-16] MEDS: INSULIN ASPART [NOVOLOG] 3 ML PEN SC ×4 (07:35→20:46)
[2019-07-16] MEDS: DOCUSATE SODIUM 10 MG/ML (10ML CUP) PO (08:21)
[2019-07-16] MEDS: FLUCONAZOLE 200 MG TAB PO (08:22)
[2019-07-16] MEDS: FAMOTIDINE 20 MG TAB PO (08:22)
[2019-07-16] MEDS: POTASSIUM CHLORIDE 20 MEQ POWDER FOR ORAL SOLN PO ×2 (08:22→20:46)
[2019-07-16] MEDS: LISINOPRIL 5 MG TAB PO (08:22)
[2019-07-16] MEDS: METOPROLOL 50 MG TAB PO ×2 (08:23→20:47)
[2019-07-16] MEDS: FUROSEMIDE 40 MG TAB PO (08:23)
[2019-07-16] MEDS: INSULIN GLARGINE [LANTus] (100 UNITS/ML) SYG SC (20:50)
[2019-07-17] MEDS: INSULIN ASPART [NOVOLOG] 3 ML PEN SC ×4 (07:35→21:00)
[2019-07-17] MEDS: FLUCONAZOLE 200 MG TAB PO (08:13)
[2019-07-17] MEDS: METOPROLOL 50 MG TAB PO ×2 (08:13→21:08)
[2019-07-17] MEDS: DOCUSATE SODIUM 10 MG/ML (10ML CUP) PO (08:14)
[2019-07-17] MEDS: LISINOPRIL 5 MG TAB PO (08:14)
[2019-07-17] MEDS: FUROSEMIDE 40 MG TAB PO (08:14)
[2019-07-17] MEDS: FAMOTIDINE 20 MG TAB PO (08:14)
[2019-07-17] MEDS: POTASSIUM CHLORIDE 20 MEQ POWDER FOR ORAL SOLN PO (08:15)
[2019-07-17] MEDS: INSULIN GLARGINE [LANTus] (100 UNITS/ML) SYG SC (21:07)
[2019-07-18 07:31] LABS: FOLATE 5.6 ng/ml (2.8-20.0)
[2019-07-18] MEDS: FAMOTIDINE 20 MG TAB PO (08:53)
[2019-07-18] MEDS: DOCUSATE SODIUM 10 MG/ML (10ML CUP) PO (08:53)
[2019-07-18] MEDS: INSULIN ASPART [NOVOLOG] 3 ML PEN SC ×4 (08:53→21:00)
[2019-07-18] MEDS: FUROSEMIDE 20 MG TAB PO (08:54)
[2019-07-18] MEDS: METOPROLOL 50 MG TAB PO ×2 (08:54→20:55)
[2019-07-18] MEDS: LISINOPRIL 5 MG TAB PO (08:54)
[2019-07-18] MEDS: POTASSIUM CHLORIDE 20 MEQ POWDER FOR ORAL SOLN PO (08:55)
[2019-07-18 16:13] LABS: RAPID PLASMA REAGIN NONREACTIVE (NR)
[2019-07-18] MEDS: INSULIN GLARGINE [LANTus] (100 UNITS/ML) SYG SC (20:56)
== END 2019-07-18 22:37 | DRG 64 ==
LOC: MS3 07-16 00:20 → E/R 23:19 → TEL 07-10 20:57 → ICU 06-29 01:53
PROC: 5A1955Z Respiratory Ventilation, Greater than 96 Consecutive Hours (ICD-10-PCS; principal; 2019-07-03)
PROC: 0BH17EZ Insertion of Endotracheal Airway into Trachea, Via Natural or Artificial Opening (ICD-10-PCS; 2019-07-03)
DX: I61.8 Other nontraumatic intracerebral hemorrhage (principal); J96.01 Acute respiratory failure with hypoxia; J69.0 Pneumonitis due to inhalation of food and vomit; G93.40 Encephalopathy, unspecified; I16.1 Hypertensive emergency; E87.0 Hyperosmolality and hypernatremia; J98.11 Atelectasis; E87.6 Hypokalemia; F14.10 Cocaine abuse, uncomplicated; F15.10 Other stimulant abuse, uncomplicated; R41.82 Altered mental status, unspecified; F17.200 Nicotine dependence, unspecified, uncomplicated; Z87.828 Personal history of other (healed) physical injury and trauma; D64.9 Anemia, unspecified; R62.7 Adult failure to thrive; E66.01 Morbid (severe) obesity due to excess calories; Z68.32 Body mass index [BMI] 32.0-32.9, adult; R53.81 Other malaise; M16.10 Unilateral primary osteoarthritis, unspecified hip
CPT/HCPCS: 36415; 36600; 70450; 70496; 70498; 71045; 73520; 80048; 80053; 80061; 80202; 80307; 81001; 82550; 82553; 82565; 82607; 82746; 82803; 82962; 83036; 83540; 83735; 84100; 84132; 84145; 84443; 84484; 84520; 85025; 85610; 85730; 86592; 87040-91; 87070; 87081; 92523; 92526; 92610; 93005; 93306; 94002; 94003; 94640; 94660; 94770; 96374; 97110; 97163; 97165; 97530; 97535; 99285-25